=== PATIENT | female | born 1975 | race Caucasian/White ===

== ENCOUNTER → 2020-06-03 14:00 | Outpatient (CLI) | payer OTHER, SELFPAY ==
--- NOTE | ~2020-06-03 | MM_ITS ---
EXAMINATION: MM screening ra BI w sarbjit HISTORY: Screening mammogram TECHNIQUE: Craniocaudal and mediolateral oblique 3-D tomosynthesis images were obtained and synthetic 2-D images were generated. CAD analysis was submitted and interpreted. COMPARISON: 09/18/2018 bilateral digital screening mammogram 07/31/2017 diagnostic left digital mammogram and complete left breast ultrasound 07/17/2017 bilateral digital screening mammogram BREAST PARENCHYMAL COMPOSITION: The breasts are heterogeneously dense, which may obscure small masses . FINDINGS: There is a circumscribed 4.7 mm rounded density at mid depth in the inner mid right breast (craniocaudal Tomosynthesis image 26/57; MLO Tomosynthesis image 28/54). Diagnostic right mammogram a nd right breast ultrasound examination are recommended. There is no evidence of suspicious mass, calc ification, or architectural distortion to suggest malignancy in either breast. There has been no susp icious interval change. IMPRESSION: 1. New 4.7 mm right breast mass 2. Diagnostic right mammogram and right breast ultrasound correlation are recommended. BI-RADS Category 0: Incomplete: Needs additional imaging evaluation. Reviewed, dictated and finalized at location A. ING MACHINE OPERATOR IMPRESSION: 1. New 4.7 mm right breast mass 2. Diagnostic right mammogram and right breast ultrasound correlation are recom mended. BI-RADS Category 0: Incomplete: Needs additional imaging evaluation.
== END ==
PROVIDERS: PCP Family Medicine; Visit Provider Nurse Practitioner Obstetrics & Gynecology
DX: Z12.31 Encounter for screening mammogram for malignant neoplasm of breast (principal); R92.8 Other abnormal and inconclusive findings on diagnostic imaging of breast
CPT/HCPCS: 77063; 77067

== ENCOUNTER → 2020-06-23 09:18 | Outpatient (CLI) | payer OTHER, SELFPAY ==
--- NOTE | ~2020-06-23 | MMUS_ITS ---
EXAMINATION: MM diagnostic mammo unilat RT, US breast RT limited HISTORY: New 4.7 mm right breast mass reported on 06/20/2020 screening mammogram TECHNIQUE: Additional 3-D tomosynthesis images of the right breast were performed and synthetic 2-D i mages were generated. CAD analysis was submitted and interpreted. High resolution targeted right [facility] st ultrasound was performed. COMPARISON: 06/20/2020 bilateral digital screening mammogram FINDINGS: MAMMOGRAPHIC FINDINGS: There is an approximately 5 mm circumscribed opacity at mid depth in the inner mid right breast at ap proximately 3:00 position. ULTRASOUND: There is a circumscribed hypoechoic or sonolucent lesion with evidence of through-transmission at 3:0 0 position. No internal vascularity or posterior shadowing. IMPRESSION: 1. Probably benign finding. Probable cyst or benign 5 mm lesion at 3:00 2. 6 month diagnostic right mammogram and targeted right breast ultrasound follow-up are recommended. BI-RADS category 3, probably benign findings. Reviewed, dictated and finalized at location A. ID GROWER IMPRESSION: 1. Probably benign finding. Probable cyst or benign 5 mm lesion at 3:00 2. 6 month diagnostic right mammogram and targeted right breast ultrasound foll ow-up are recommended. BI-RADS category 3, probably benign findings.
== END ==
PROVIDERS: Visit Provider Nurse Practitioner Obstetrics & Gynecology
DX: R92.8 Other abnormal and inconclusive findings on diagnostic imaging of breast (principal)
CPT/HCPCS: 76642; 77065

== ENCOUNTER → 2021-02-25 13:54 | Outpatient (CLI) | payer OTHER, SELFPAY ==
--- NOTE | ~2021-02-25 | XR_ITS ---
EXAMINATION: XR chest 2V EXAM DATE: 02/25/2021 14:22 INDICATION: Shortness of breath. TECHNIQUE: Frontal and lateral projections of the chest obtained and reviewed. Comparison is made to prior examination from 05/18/2015. FINDINGS: Lungs are hyperinflated. The lungs are clear. There are no pleural effusions. The cardio mediastinal silhouette is within normal limits. There is no pneumothorax suspected. The bones and s oft tissues are unremarkable. IMPRESSION: 1. No acute cardiopulmonary findings. 2. Hyperinflation. Reviewed, dictated and finalized at location A.
== END ==
PROVIDERS: PCP Family Medicine; Visit Provider Physician Assistant
DX: R06.02 Shortness of breath (principal); R91.8 Other nonspecific abnormal finding of lung field
CPT/HCPCS: 71046

== ENCOUNTER → 2021-06-09 13:38 | Outpatient (CLI) | payer OTHER, SELFPAY ==
--- NOTE | ~2021-06-09 | XR_ITS ---
EXAMINATION: XR hip LT min 2V INDICATION: Left hip pain TECHNIQUE: Two views of the left hip are obtained. COMPARISON: None available FINDINGS: Bone alignment is normal. There is no fracture. The soft tissues are unremarkable. An IUD i s noted. There are phleboliths of the pelvis. IMPRESSION: 1. No acute osseous abnormality. Reviewed, dictated and finalized at location F. LOGY TECHNICIAN
== END ==
PROVIDERS: PCP Family Medicine; Visit Provider Family Medicine
DX: M25.552 Pain in left hip (principal)
CPT/HCPCS: 73502

== ENCOUNTER 2021-07-06 09:06 | Emergency (ER) | payer OTHER, SELFPAY ==
[2021-07-06 09:56] VITALS: BP 127/82; PULSE 94; RESP 16; TEMP 37.1; O2SAT 99
--- NOTE | 2021-07-06 10:33 | ED.NAVMDI ---
HPI - Nausea/Vomiting/Diarrhea General Chief complaint: Nausea/Vomiting/Diarrhea Stated complaint: vomiting/diarrhea Time Seen by Provider: 07/06/21 10:33 Source: patient Mode of arrival: ambulatory Limitations: no limitations History of Present Illness HPI Narrative: Ly Park is a 46 yo female with a PMH of hypertension, migraine with aura, who [facility] with vomiting and diarrhea since Sunday. She has been able to drink water and she takes Imodium to control the diarrhea but is not improved. She is here for evaluation and wants blood work; her primary care doctor is none then today. She also wants Covid test Related Data Home Medications Medication Instructions Recorded Confirmed lisinopril 10 mg PO DAILY 07/04/19 07/06/21 topiramate 50 mg PO DAILY 07/04/19 07/06/21 trazodone 50 mg PO DAILY 07/04/19 07/06/21 Allergies Allergy/AdvReac Type Severity Reaction Status Date / Time Sulfa (Sulfonamide Allergy Intermediate Unknown Verified 07/06/21 10:55 Antibiotics) Review of Systems Review of Systems: CONSTITUTIONAL: Denies fever, chills, sweats. EYES: Denies visual changes, redness, discharge. ENT: Denies rhinorrhea, congestion, sore throat, otalgia. CARDIOVASCULAR: Denies chest pain, palpitations, edema. RESPIRATORY: Denies dyspnea, wheezing, cough GASTROINTESTINAL: Denies abdominal pain, has nausea, vomiting, diarrhea. GENITOURINARY: Denies dysuria, hematuria, abnormal discharge SKIN: Denies rash or itching. NEUROLOGIC: Denies numbness, or focal weakness. PSYCHIATRIC: Denies anxiety or depression. [facility] Past Medical History Medical History Asthma delivery delivered Labral tear of hip joint Left hip impingement syndrome Left hip pain Whooping cough Surgical History Surgical History Hx of appendectomy Social History Social History Smoking status: Never smoker Alcohol intake: never Gender identity (if verbalized by the patient): Female Comments At time of signature, I agree with nursing past medical, surgical, social and family history. There is no relevant family history pertinent to the presenting complaint. Exam Narrative: GENERAL: This is a well-nourished, well-developed patient, in mild distress. HEAD: normocephalic, atraumatic. EYES: . Sclera clear/white. Vision is grossly intact. EARS: External ears normal. Hearing grossly intact. NOSE: External nose normal without nasal discharge, nares without redness, no rhinorrhea. THROAT: Mucous membranes moist, NECK: Neck supple, CARDIOVASCULAR: Regular rate and rhythm without murmurs, gallops, or rubs. RESPIRATORY: Clear to auscultation. Breath sounds equal bilaterally. No wheezes, rales, or rhonchi. GASTROINTESTINAL: Abdomen soft, non-tender, SKIN: warm, intact with no suspicious lesions or rash, good texture and turgor. NEURO: awake, alert, and oriented to person, place and time. There were no obvious focal neurologic abnormalities. Steady gait EXTREMITIES: Normal range of motion. BACK: Nontender without deformity Course Course Emergency Course: Patient is here for vomiting and diarrhea for last 4+ days-she has been afebrile but unable to eat any more than drink water and diarrhea is persisted unless she takes Imodium Rapid Covid Continue Imodium. Hydration. Call PCP in the morning to order blood work if diarrhea persists Level of Care: Express Care Visit Vital Signs Vital signs: Vital Signs Temperature 98.8 F 07/06/21 09:56 Pulse Rate 94 07/06/21 09:56 Respiratory Rate 16 07/06/21 09:56 Blood Pressure 127/82 07/06/21 09:56 Pulse Oximetry 99 07/06/21 09:56 Temperature 98.8 F 07/06/21 09:56 Pulse Rate 94 07/06/21 09:56 Respiratory Rate 16 07/06/21 09:56 Blood Pressure 127/82 07/06/21 09:56 Pulse Oximetry 99
[2021-07-07 14:35] LABS: SARS-CoV-2 RNA PCR Negative
== END 2021-07-06 11:31 | disposition home or self-care (01) ==
PROVIDERS: Emergency Provider Nurse Practitioner; PCP Family Medicine
DX: K52.9 Noninfective gastroenteritis and colitis, unspecified (principal); Z20.822 Contact with and (suspected) exposure to COVID-19; J45.909 Unspecified asthma, uncomplicated; I10 Essential (primary) hypertension
CPT/HCPCS: 87426; 99213; C9803; G0463; U0003; U0005

== ENCOUNTER → 2021-10-03 09:37 | Outpatient (CLI) | payer OTHER, SELFPAY ==
--- NOTE | ~2021-10-03 | MR_ITS ---
EXAMINATION: MR hip LT wo con DATE: 10/03/2021 10:21 INDICATION: Several months of left hip pain TECHNIQUE: Magnetic resonance imaging (MRI) of the left hip was performed without intravenous contra st. Sequences included full-field axial PD-weighted FS FSE and T1-weighted FSE, coronal of the pelvis with PD-weighted FS FSE, T2-weighted FSE and T1-weighted FSE, small field of view of the left hip w ith axial PD-weighted FS FSE, sagittal PD-weighted FS FSE, coronal PD-weighted FS FSE and coronal T2 weighted FSE. Additional radial T1-weighted FGR oriented orthogonal to the acetabular rim were obtai brian for evaluation of the labrum. COMPARISON: Radiographs dated 06/09/2021 FINDINGS: Bones/labrum/cartilage: Alignment is normal. No fracture, avascular necrosis or pathologic marrow replacing process. Diffuse labral tear beginning posteriorly at the 10:00 position and extending anteriorly to the 1:00 positio n. The anterior to anterosuperior labrum has a tic and macerated appearance with small likely intrasu bstance ganglion cyst anteriorly. There is mild partial-thickness cartilage loss without degenerative subchondral changes at the anterior and to lesser degree anterosuperior aspect of the left hip joint space. Similar tear suggest on the larger field of view images of the anterior to superolateral cont ralateral right acetabular labrum also with likely anterosuperior intrasubstance ganglion cyst format ion bone island at the inferior aspect of the right greater trochanter. Fluid: Symmetric physiologic amount of fluid within both hip joints. Soft tissues: Normal and symmetric muscle bulk and signal in the pelvis and visualized proximal thighs. The iliopso as, gluteal and proximal hamstring tendons are normal. Mild increased fluid signal overlying the grea ter trochanters, mild on the right and minimal on the left consistent with trochanteric bursitis. The re is also mild right gluteus medius bursitis. Small bilateral ovarian follicles with larger 3.5 cm d ominant follicle at the right ovary. Linear low signal intensity IUD within the endometrial canal of the anteverted uterus. Limited evaluation of visceral organs of the pelvis is otherwise unremarkable. No pathologically enlarged pelvic/inguinal lymphadenopathy. IMPRESSION: 1. 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 Similar labral tear suggested at the con tralateral right hip but not diagnostically evaluated on the larger field of view images. 2. Mild right and minimal left trochanteric bursitis and mild right gluteus medius medius bursitis. 3. IUD. Reviewed, dictated and finalized at location B. IMPRESSION: 1. 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 Similar labral tea r suggested at the contralateral right hip but not diagnostically evaluated on the larger field of view images. 2. Mild right and minimal left trochanteric bursitis and mild right gluteus med ius medius bursitis. 3. IUD.
== END ==
PROVIDERS: PCP Family Medicine; Visit Provider Nurse Practitioner Family
DX: M16.12 Unilateral primary osteoarthritis, left hip (principal); Z97.5 Presence of (intrauterine) contraceptive device; M70.71 Other bursitis of hip, right hip
CPT/HCPCS: 73721

== ENCOUNTER 2021-10-13 08:35 | Outpatient (CLI) | payer OTHER, SELFPAY ==
--- NOTE | ~2021-10-13 | XR_ITS ---
EXAMINATION: XR lg joint inject/asp w image DATE: 10/13/2021 09:35 INDICATION: Left hip arthritis. TECHNIQUE: A time-out was performed to verify the patient's name, date of , and procedure to b e performed. The procedure including the risks, benefits, and alternatives was discussed with the pat ient. Risks discussed included bleeding and infection. The patient understood the risks and agreed to proceed. The skin overlying the left hip joint was prepped and draped in usual sterile fashion. An esthetic was administered with 1% lidocaine subcutaneously. A 22 G needle was advanced under fluoros copic guidance into the joint. Injection of 1 mL of Omnipaque 240 confirmed intra-articular position of the needle. Subsequently, injectate consisting of 2 mL 0.5% bupivacaine and 1 mL 80 mg/mL Depo-M edrol was instilled. The needle was removed and the entry site was cleaned and dressed. There were no immediate complications. Fluoroscopy exposure time was 0.0 minutes. The total number of images was 2. FINDINGS: Real-time fluoroscopy demonstrates the needle in the right joint. Patient's pain prior to p rocedure:09/08. Patient's pain following the procedure: 07/11. IMPRESSION: 1. Fluoroscopy guided left hip joint injection of local anesthetic and steroid with decrease in the p atient's presenting pain. Reviewed, dictated and finalized at location A. IMPRESSION: 1. Fluoroscopy guided left hip joint injection of local anesthetic and steroid with decrease in the patient's presenting pain.
== END 2021-10-13 08:36 | disposition home or self-care (01) ==
LOC: ANHIMG 08:38
PROVIDERS: PCP Family Medicine; Visit Provider Nurse Practitioner Family
DX: M16.12 Unilateral primary osteoarthritis, left hip (principal)
CPT/HCPCS: 20610; 77002; J1040; Q9966

== ENCOUNTER → 2022-10-27 16:28 | Outpatient (CLI) | payer SELFPAY ==
--- NOTE | ~2022-10-27 | MM_ITS ---
EXAMINATION: MM screening [facility] BI w sarbjit HISTORY: Screening mammogram TECHNIQUE: Craniocaudal and mediolateral oblique 3-D tomosynthesis images were obtained and synthetic 2-D images were generated. CAD analysis was submitted and interpreted. COMPARISON: 06/23/2020, 06/03/2020, 09/18/2018 BREAST PARENCHYMAL COMPOSITION: The breasts are heterogeneously dense, which may obscure small masses . FINDINGS: No suspicious mass, calcification, or architectural distortion are identified in either kinjal ast to suggest malignancy. There has been no suspicious interval change. IMPRESSION: 1. No mammographic evidence of malignancy. 2. Recommend routine screening mammography in one year. BI-RADS Category 1: Negative Reviewed, dictated and finalized at location A.
== END ==
PROVIDERS: PCP Obstetrics & Gynecology; Visit Provider Obstetrics & Gynecology
DX: Z12.31 Encounter for screening mammogram for malignant neoplasm of breast (principal)
CPT/HCPCS: 77063; 77067

== ENCOUNTER 2023-12-26 14:48 | Outpatient (CLI) | payer OTHER, SELFPAY ==
--- NOTE | ~2023-12-26 | MM_ITS ---
EXAMINATION: MM screening ra BI w sarbjit HISTORY: Screening mammogram TECHNIQUE: Craniocaudal and mediolateral oblique 3-D tomosynthesis images were obtained and synthetic 2-D images were generated. CAD analysis was submitted and interpreted. COMPARISON: 10/19/2022, 06/03/2020, 09/18/2018 BREAST PARENCHYMAL COMPOSITION:Dense: The breasts are heterogeneously dense, which may obscure small masses. FINDINGS: There are multiple more conspicuous low-density probable circumscribed masses in the left b reast, largest in the slightly upper, inner subareolar region, measuring 1.8 cm in diameter. Several additional subcentimeter masses are also present. No distinct parenchymal abnormality the right breas t seen. No suspicious parenchymal calcification either breast. IMPRESSION: Multiple more conspicuous left breast masses, as detailed above. Multiplicity suggests multiple cysts , however spot compression views and ultrasound are recommended for further evaluation at this time. BI-RADS Category 0: Incomplete: Needs additional imaging evaluation. Reviewed, dictated and finalized at location . IMPRESSION: Multiple more conspicuous left breast masses, as detailed above. Multiplicity s uggests multiple cysts, however spot compression views and ultrasound are recom mended for further evaluation at this time. BI-RADS Category 0: Incomplete: Needs additional imaging evaluation.
== END 2023-12-26 14:49 | disposition home or self-care (01) ==
LOC: ANHIMG 14:50
PROVIDERS: PCP Family Medicine; Visit Provider Obstetrics & Gynecology
DX: Z12.31 Encounter for screening mammogram for malignant neoplasm of breast (principal); R92.8 Other abnormal and inconclusive findings on diagnostic imaging of breast
CPT/HCPCS: 77063; 77067